=== PATIENT | female | born 1990 ===

== ENCOUNTER 2017-10-21 20:53 | Emergency (ER) | payer OTHER ==
[2017-10-21] MEDS ORDERED: BENADRYL IM ONE ×2 (22:27→22:32)
[2017-10-21] MEDS ORDERED: DECADRON IM ONE (22:28)
[2017-10-21] MEDS ORDERED: PEPCID PO ONE (22:29)
--- NOTE | 2017-10-21 23:58 | Emergency Department Report ---
HPI - General Chief Complaint: Allergic Reaction Time Seen by Provider: 10/21/17 23:37 - HPI HPI: 27-year-old female past medical history none presents with complaint of breaking out into hives at approximately 8 PM tonight. Patient denies contact with any new cosmetics pets denies any recent travel or detergents or soaps fabrics cosmetic products. Patient states she has a seafood allergy as a child but has not to her knowledge eaten or been exposed to any seafood today. Patient is awake alert and oriented 3. States her skin feels itchy and she has visible hives on arms legs chest back. Denies any difficulty breathing and/ or throat pain or aching. No visible facial swelling as per patient. Patient' s is at bedside and states there are no visible changes in her face other than the hives on her skin. Patient is awake alert and oriented 3 speaking in full sentences no audible respiratory distress no audible wheezing or stridor. She took 25 mg of Benadryl before coming to hospital. ED Past Medical Hx - Past Medical History Previous Medical History?: No - Surgical History Past Surgical History?: Yes Additional Surgical History: Eye surgery as a child - Social History Smoking Status: Current Every Day Smoker - Medications Home Medications: Home Medications Medication Instructions Recorded Confirmed Last Taken Type Cetirizine HCl [ZyrTEC] 10 mg PO QDAY #14 capsule 10/22/17 Unknown Rx EPINEPHrine [Epipen] 0.3 mg IJ ONCE PRN #1 auto.injct 10/22/17 Unknown Rx Famotidine [Pepcid] 20 mg PO BID PRN #30 tablet 10/22/17 Unknown Rx diphenhydrAMINE [Benadryl CAP] 25 mg PO Q8HR PRN #30 capsule 10/22/17 Unknown Rx predniSONE [Deltasone] 20 mg PO QDAY #5 tab 10/22/17 Unknown Rx ED Review of Systems ROS: Stated complaint: ALLERGIC REACTION Other details as noted in HPI Constitutional: denies: chills, fever Eyes: denies: eye pain, eye discharge, vision change ENT: denies: ear pain, throat pain Respiratory: denies: cough, shortness of breath, wheezing Cardiovascular: denies: chest pain, palpitations Endocrine: no symptoms reported Gastrointestinal: denies: abdominal pain, nausea, diarrhea Genitourinary: denies: urgency, dysuria, discharge Musculoskeletal: denies: back pain, joint swelling, arthralgia Skin: as per HPI, pruritus (hives and itchy skin since 8 PM). denies: rash, lesions Neurological: denies: headache, weakness, paresthesias Psychiatric: denies: anxiety, depression Hematological/Lymphatic: denies: easy bleeding, easy bruising Physical Exam - Physical Exam Vital Signs: Vital Signs 10/21/17 10/21/17 21:58 22:18 Temperature 97.9 F 97.9 F Pulse Rate 101 H 107 H Respiratory 18 20 Rate Blood Pressure 124/89 124/89 O2 Sat by Pulse 98 99 Oximetry General: General: Well appearing, well nourished, in no distress. Oriented x 3, normal mood and affect . Ambulating without difficulty. Skin: Visible hives on arms legs chest back and abdomen.: Head: Normocephalic, atraumatic, no visible or palpable masses, depressions, or scaring. Eyes: Perrla, EOMI Ears: EACs clear, TMs translucent & mobile, ossicles nl appearance, hearing intact. Pharynx: Oropharynx open and patent. No visible tongue swelling no lip swelling Mucosa non-inflamed, no tonsillar hypertrophy or exudate Neck: Supple, without lesions, bruits, or adenopathy, thyroid non-enlarged and non-tender Heart: No cardiomegaly or thrills; regular rate and rhythm, no murmur or gallop Lungs: Clear to auscultation bilaterally Abdomen: Bowel sounds normal, no tenderness, organomegaly, masses, or hernia Neurologic: CN 2-12 normal. Sensation to pain, touch, and proprioception normal. DTRs normal in upper and lower extremities. No pathologic reflexes. ED Course Vital Signs 10/21/17 10/21/17 21:58 22:18 Temperature 97.9 F 97.9 F Pulse Rate 101 H 107 H Respiratory 18 20 Rate Blood Pressure 124/89 124/89 O2 Sat by Pulse 98 99 Oximetry ED Medical Decision Making - Medical Decision Making A/P: Allergic reaction, pruritus, hives 1-Benadryl when necessary, Zyrtec, course of prednisone, EpiPen when necessary 2-I referred patient to allergy clinic. [email or web address] 3-significant improvement of hives and urticaria/pruritus before discharge 4- vital signs stable for discharge. No clinical signs of angioedema or anaphylaxis. Critical care attestation.: If time is entered above; I have spent that time in minutes in the direct care of this critically ill patient, excluding procedure time. ED Disposition Clinical Impression: Urticaria Disposition: DC-01 TO HOME OR SELFCARE Is pt being admited?: No Does the pt Need Aspirin: No Condition: Stable Instructions: Urticaria (ED), Epinephrine (Injection) Prescriptions: Cetirizine HCl [ZyrTEC] 10 mg PO QDAY #14 capsule diphenhydrAMINE [Benadryl CAP] 25 mg PO Q8HR PRN #30 capsule PRN Reason: Itching EPINEPHrine [Epipen] 0.3 mg IJ ONCE PRN #1 auto.injct PRN Reason: Angioedema Famotidine [Pepcid] 20 mg PO BID PRN #30 tablet PRN Reason: Itching predniSONE [Deltasone] 20 mg PO QDAY #5 tab Referrals: [facility] [Provider Group] - 3-5 Days Forms: Accompanied Note, Work/School Release Form(ED) Time of Disposition: 00:16
[2017-10-22 00:33] VITALS: BP 118/83
== END 2017-10-22 00:32 | disposition home or self-care (01) ==
LOC: ED 20:53
DX: L50.9 Urticaria, unspecified (principal); F17.200 Nicotine dependence, unspecified, uncomplicated
CPT/HCPCS: 81025; 96372; 99283; J1100; J1200